=== PATIENT | male | born 1990 | race Caucasian/White ===

== ENCOUNTER 2024-08-17 21:32 | Inpatient (IN) | payer MEDICARE, SELFPAY ==
[2024-08-17 16:54] VITALS: BP 124/77
[2024-08-17 17:05] LABS: % Basophils 0.4 % (0-2); % Eosinophils 0.6 % (0-6); % Immature Granulocytes 0.3 % (0-0.5); % Lymphocytes 22.9 % (20.5-51.1); % Monocytes 7.2 % (1.7-9.3); % Neutrophils 68.6 % (42.2-75.2); Absolute Lymphocytes 1.6 10^3/uL (1.2-3.4); Absolute Monocytes 0.5 10^3/uL (0.1-0.6); Absolute Neutrophils 4.7 10^3/uL (1.4-6.5); Hematocrit 43.3 % (39.0-52.0); Mean Corp Hgb Conc. 34.6 g/dL (33.0-37.0); Mean Corpuscular Hgb 29.4 pg (27.0-31.0); Mean Corpuscular Volume 84.7 fL (80.0-94.0); Mean Platelet Volume 11.1 fL (7.4-10.4); Nucleated Red Blood Cells % 0 % (-); Platelet Count 185 10^3/uL (130-400); Red Blood Cell Count 5.11 10^6/uL (4.70-6.10); Red Cell Dist. Width 12.8 % (11.5-14.5); White Blood Cell Count 6.9 10^3/uL (4.8-10.8)
[2024-08-17 17:22] LABS: AST (SGOT) 22 U/L (17-59); Albumin 4.8 g/dl (3.5-5.0); Blood Urea Nitrogen 5 mg/dl (9-20); Calcium 9.8 mg/dl (8.4-10.2); Carbon Dioxide 21 mmol/L (22-30); Glucose 103 mg/dl (70-99); Total Bilirubin 1.1 mg/dl (0.2-1.3); Total Protein 7.8 g/dl (6.3-8.2); eGFR > 60.00
[2024-08-17 17:42] LABS: ALT (SGPT) 23 U/L (0-50); Alkaline Phosphatase 48 U/L (38-126); Chloride 106 mmol/L (98-107); Sodium 137 mmol/L (135-145)
[2024-08-17 18:04] LABS: Lipase 2057 U/L (23-300)
--- NOTE | 2024-08-17 18:48 | ED.GENMED ---
History of Present Illness
General
Chief Complaint: Abdominal Pain
Source: patient
Exam Limitations: none
Time Seen by Provider: 08/17/24 18:35
History of Present Illness
History of Present Illness:
34yoM with no significant past medical history presenting for evaluation of abdominal pain. Symptoms have been ongoing for about a week. He reports a dull pain particularly in his right upper quadrant. Pain is worse about 4 to 5 hours after
eating and at nighttime. Pain began worsening about 48 hours ago. No prior history of similar pains. He thought he may be constipated so started taking laxatives and now has diarrhea. He denies any fevers, nausea, vomiting. Of note, patient
started a high-fiber diet about a week prior to his symptoms starting. No previous abdominal surgeries. No alcohol use.
Phy Exam
General Physical Exam
General Presentation: well appearing and no apparent distress
General Skin: warm and dry
General Habitus: normal
General Mental: alert
ENT Exam
ENT Exam: normocephalic
Pulmonary Exam
Pulmonary Exam: no respiratory distress
Gastrointestinal Exam
Gastrointestinal Exam: soft, non distended and other (+Tenderness in epigastrium and RUQ. Abdomen soft, non-distended. No rebound or guarding.)
Neurological Exam
Neurological Exam: alert
G[place]le Coma Scale
Eye Opening: Spontaneous
Verbal Response: Oriented
Motor Response: Obeys Commands
GCS Total Score: 15
Skin Exam
Skin Exam: normal color and warm/dry
Psychiatric Exam
Psychiatric Exam: normal mood/affect
Course
Orders/Labs/Results
Orders:
Orders
08/17/24 Dinner
NPO
Allow oral meds: No
Allow clear liquids: No
NPO with Ice Chips: No
08/17/24 17:00
Cardiovascular Evaluation Urgent
Comment: ADD ON
Complete Blood Count/With Diff Urgent
Comprehensive Metabolic Panel Urgent
Lipase Urgent
08/17/24 18:47
0.9% Sodium Chloride 1000 ml [Nss] 1,000 ml IV BOLUS
US Abdomen Complete/Upper Urgent
Comment:
Reason For Exam: RUQ pain, elevated lipase
08/17/24 20:10
HYDROmorphone [Dilaudid] 0.5 mg IV NOW STA
08/17/24 20:30
Add On- LAB Urgent
Tests Added?: Lipid panel
08/17/24 20:54
Admit/Transfer Patient As Directed
Co-Sign Provider:
Level of Care: Inpatient admission
Assign to:: Medical/Surgical
Physician / Group: lela abrams
Diagnosis: acute pancreatitis
Reason for Hospitalization: acute pancreatitis
Expected length of stay greater than two midnights?: Yes
ELOS- Estimated Length of Stay in days: 3
I certify the patient meets the requirements for IP care: Yes
Code Status As Directed
Resuscitation Status: Full Code
08/17/24 20:58
PRN Pain Medication Management As Directed
May give lesser potent ordered pain med per pt: Yes
preference::
Protocol:: Medication orders for pain may be administered in a
manner that supports deferring to patient preference
when the pt is:
- Requesting an ordered lesser potent pain medication.
Least to most potent pain medications are defined
as: acetaminophen < NSAID < tramadol < opioids
(morphine, oxycodone, hydromorphone).
- Requesting a lesser dose of the same medication IF
ORDERED.
- Requesting a less intrusive route of administration
if both routes are prescribed by the provider (PO <
IV).
08/17/24 23:29
0.9% Sodium Chloride 1000 ml [Nss] 1,000 ml IV 150 mls/hr
HYDROmorphone [Dilaudid] 0.5 mg IV Q4HPRN PRN
HYDROmorphone [Dilaudid] 1 mg IV Q4HPRN PRN
08/17/24 23:29
Activity As Directed
Activity Level: As Tolerated
Sequential Compression Device [Pneumatic Compression Sleeves] As Directed
Type: Knee high
Vital Signs As Directed
Frequency: Per unit guidelines
DX Deep Vein Thrombosis Video Routine
08/18/24 06:00
Complete Blood Count/With Diff IN AM
Comprehensive Metabolic Panel IN AM
MRI Abdomen [MR Abdomen With Contrast] IN AM
Comment:
Reason For Exam: acute panreatitis
OK for patient to be off Cardiac Monitoring for MRI: Yes
Recent pill cam endoscopy?: No
Pacemaker/Defibrillator?: No
08/19/24 06:00
Complete Blood Count/With Diff IN AM
Comprehensive Metabolic Panel IN AM
Abnormal Lab Results
08/17/24
17:00
MPV 11.1 H fL
(7.4-10.4)
Carbon Dioxide 21 L mmol/L
(22-30)
BUN 5 L mg/dl
(9-20)
Creatinine 0.6 L mg/dL
(0.7-1.3)
Glucose 103 H mg/dl
(70-99)
Total Cholesterol 213 H mg/dl
(50-199)
Lipase 2057 H* U/L
(23-300)
08/17/24 17:00
08/17/24 17:00
Vital Signs
Initial and Last Documented VS:
Initial Vital Signs
Temp Pulse Resp BP Pulse Ox
97.9 F 103 20 124/77 98
08/17/24 16:54 08/17/24 16:54 08/17/24 16:54 08/17/24 16:54 08/17/24 16:54
Last Documented Vital Signs
Temp Pulse Resp BP Pulse Ox
98.6 F 82 14 111/54 97
08/17/24 23:46 08/17/24 23:46 08/17/24 23:46 08/17/24 23:46 08/17/24 23:46
MDM/Problems Addressed
Differential Diagnosis Includes:
34yoM here with RUQ pain x 1 week. Worsening x 48 hours. Worse with eating. Otherwise asymptomatic. VSS. He is non-toxic appearing. No signs of peritonitis on abdominal exam. Differential diagnosis includes but is not limited to: Biliary colic,
cholecystitis, pancreatitis, peptic ulcer disease, appendicitis, nonspecific abdominal pain
Initial ED plan: Abdominal labs obtained in triage. Lipase is greater than 2000. Remainder of labs including LFTs are normal. Will check upper abdominal ultrasound.
*Critical Care Note
Total Time (30-74mins, 75-104mins- exclusive of procedures): Not Applicable
Update Note
Update Note:
No obvious evidence of cholelithiasis on ultrasound. Unclear etiology of pancreatitis. He denies any alcohol use and is not on any prescription medications. Patient admitted for further evaluation and management.
ED Attending Note
-
Portions of this chart may have been created with voice recognition software.� Occasional wrong word or��sound alike� substitutions may have occurred due to the inherent limitations of voice recognition software.
Discharge Plan
Departure
Patient Disposition: Admit
Date of Disposition: 08/17/24
Time of Disposition: 20:12
Presentation/result/management discussed w/ accepting MD/DO: Hospitalist
Discharge Problem:
Acute pancreatitis
Interventions
Interventions:
*Risk Screen - Suicide Last Done: 08/17/24 16:54
*General Assessment Last Done: 08/17/24 16:54
*Neglect/Abuse Screening Last Done: 08/17/24 19:02
*ED- Fall Risk Assessment Last Done: 08/17/24 19:04
*ED COVID-19 Vaccine History Last Done: 08/17/24 19:04
XG-Vzjbao-Moizxguwox Assessment Last Done: 08/17/24 20:50
[2024-08-17 18:59] VITALS: BMI 23.2
[2024-08-17 19:00] VITALS: BP 96/58
--- NOTE | 2024-08-17 20:26 | HPS.HSE ---
Family Physician
-
Family Physician:
Chief Complaint
-
Right upper quadrant abdominal pain x 7 days on and off
History of Present Illness
34-year-old male complaining of right upper quadrant abdominal pain on and off for the past 7 days exacerbated after food or oral intake. He denies alcohol use states he has been sober for approximately 6 years. Denies any family history of
hyperlipidemia or gallstones. He denies headache, fever, chills, chest pain, palpitations, cough, shortness of breath, nausea, vomiting, diarrhea, urinary symptoms. He has past medical history of prior alcohol abuse, migraines, anxiety.
Medical History
Past Medical History
Past Medical History: Reports Other
Additional Past Medical History:
prior alcohol abuse-sober x 6 years
migraines
anxiety
Past Surgical History: Reports None
Social History
Tobacco: Non-smoker
Alcohol: Former (Sober x 6 years)
Drug: None
Personal: Other (Girlfriend)
Living: Other (Girlfriend)
Employment: Not Employed
Family History
Family History: Other (Paternal grandfather lung cancer, maternal grandmother breast cancer, father colon polyps, former alcohol abuse)
Allergies / Home Medications
Allergies reflects when Allergies were last updated in [facility].
Home Medications with original date entered in [facility]
Allergy/Medication List:
Allergies
Allergy/AdvReac Type Severity Reaction Status Date / Time
No Known Allergies Allergy Unverified 08/17/24 16:55
Home Medications
ibuprofen 200 mg tablet (Advil) 200 mg PO DAILYPRN PRN mild pain 08/17/24
polyethylene glycol 3350 17 gram oral powder packet (Miralax) 17 g PO DAILYPRN PRN constipation 08/17/24
simethicone 250 mg capsule (Gas-X) 250 mg PO BIDPRN PRN gas pains 08/17/24
Review of Systems
-
History Source: Patient
A 12 point ROS was completed and negative except as noted: Yes
Constitutional: Denies Fever or Chills
EENT: Denies Sore Throat or Runny Nose
Respiratory: Denies Cough or Trouble Breathing
Cardiac: Denies Chest Pain, Diaphoresis, Palpitations or Syncope
Abdomen/GI: Reports Abdominal Pain (Right upper quadrant); Denies Nausea, Vomiting, Diarrhea, Constipated, Bloody Stools or Black Stools
: Denies Dysuria, Frequency, Flank Pain, Incontinence, Difficulty Voiding, Urgency or Dark Urine
Musculoskeletal: Denies Joint Pain or Edema
Skin: Denies Itching or Rash
Neurological: Denies Dizzy, Headache or Weakness
Endocrine: Reports No Symptoms
Hematologic/Lymphatic: Reports No Symptoms
Psych: Reports Calm
Physical Exam
Vital Signs
Vital Signs
Temp Pulse Resp BP Pulse Ox
98.3 F 82 18 96/58 99
08/17/24 19:00 08/17/24 19:00 08/17/24 19:00 08/17/24 19:00 08/17/24 19:00
Physical Exam
General: Conversant; No Fever, Chills or Sweats
HEENT: NormoCephalic, Anicteric, Moist mucous membranes, PERRLA, [place] Conjunctivae and No Ptosis
Respiratory: Clear; No Wheezes, Rales or Rhonchi
Cardiac: S1/S2 and Regular Rhythm; No Murmur, Rub, Gallop or Peripheral Edema
Breast: Deferred by me
GI: Soft, Non Distended, Normal Bowel Sounds, Tender (Right upper quadrant) and No Hepatosplenomegaly
Rectal: Deferred by Provider
Genito-urinary: Deferred by me
Musculoskeletal: No Clubbing, No Cyanosis and No Edema
Skin: Warm and Dry; No Rash
Neuro: AO x 3, No Motor Deficits, Nonfocal/grossly intact, Cranial Nerves Intact and No Sensory Deficits; No Facial Droop, Tremors or Sedated
Psych: Calm
Laboratory Results
-
08/17/24 17:00
08/17/24 17:00
Laboratory Results
Total Bilirubin 1.1 mg/dl (0.2-1.3) 08/17/24 17:00
AST 22 U/L (17-59) 08/17/24 17:00
ALT 23 U/L (0-50) 08/17/24 17:00
Alkaline Phosphatase 48 U/L (38-126) 08/17/24 17:00
Lipase 2057 U/L (23-300) H* 08/17/24 17:00
Data Reviewed
-
Ultrasound: Report Reviewed by me
Lab Data: Labs Reviewed by me
Impression/Plan
-
Impression/plan:
Observation MedSurg
#Acute pancreatitis
- Lipase 2056
-IV NSS 150 cc an hour
- MRI abdomen with contrast in a.m.
- Consult GI
- IV Dilaudid as needed pain
- IV Zofran as needed nausea
- Follow CBC, CMP
Abdominal ultrasound: No findings to confirm cholelithiasis. Likely trace gallbladder sludge. No gallbladder wall thickening or biliary tract dilation pancreas, abdominal aorta and IVC significantly obscured most likely by
overlying bowel gas
#Migraine hx
- No current migraine
#History anxiety
- Not on current medication
#History of prior alcohol abuse�sober x 6 years
Alcoholic from age [age] daily 12 beers or hard liquor
DVT prophylaxis
SCDs
Full code
--- NOTE | 2024-08-17 20:37 | W.PN.UPDATE ---
Update Note
Progress Note Update
I have independently examined the patient and agree with H&P written on the same date. In addition:
34yo M with PMHx of alcoholism, sober for years now came with 2 weeks upper abd pain, found pancreatitis
IVF, NPO, MRI abd with contrast pancreatic protocol with family Hx of CA, GI consult, pain mgmt, check lipids
US with sludge in gall bladder -still can be a gall stone pancreatitis - defer decision on cholecystectomy to GI
We have spent at least 78min admitting the patient
[2024-08-17 21:21] LABS: HDL Cholesterol 42 mg/dl; LDL Cholesterol, Calculated 153 mg/dl; Total Cholesterol 213 mg/dl (50-199); Triglyceride 92 mg/dl (10-149); Very Low Density Lipoprotein 18 mg/dl (0-30)
[2024-08-17] MEDS: DILAUDID 0.5 MG IV (22:04)
[2024-08-17] MEDS: NSS 1000 IV (23:35)
[2024-08-17 23:46] VITALS: BP 111/54
[2024-08-18] MEDS: DILAUDID 0.5 MG IV ×5 (02:55→21:42)
[2024-08-18] MEDS: NSS 1000 IV ×2 (05:09→11:34)
[2024-08-18 06:02] LABS: % Basophils 0.4 % (0-2); % Eosinophils 0.8 % (0-6); % Immature Granulocytes 0.1 % (0-0.5); % Monocytes 10.5 % (1.7-9.3); % Neutrophils 61.2 % (42.2-75.2); Absolute Eosinophils 0.1 10^3/uL (0-0.7); Absolute Lymphocytes 1.9 10^3/uL (1.2-3.4); Absolute Monocytes 0.8 10^3/uL (0.1-0.6); Absolute Neutrophils 4.4 10^3/uL (1.4-6.5); Hematocrit 40.2 % (39.0-52.0); Hemoglobin 13.5 g/dL (13.0-18.0); Mean Corp Hgb Conc. 33.6 g/dL (33.0-37.0); Mean Corpuscular Hgb 28.8 pg (27.0-31.0); Mean Corpuscular Volume 85.7 fL (80.0-94.0); Mean Platelet Volume 11.6 fL (7.4-10.4); Nucleated Red Blood Cells % 0 % (-); Platelet Count 178 10^3/uL (130-400); Red Blood Cell Count 4.69 10^6/uL (4.70-6.10); Red Cell Dist. Width 13.1 % (11.5-14.5); White Blood Cell Count 7.1 10^3/uL (4.8-10.8)
[2024-08-18 06:29] LABS: ALT (SGPT) 20 U/L (0-50); AST (SGOT) 21 U/L (17-59); Albumin 4.4 g/dl (3.5-5.0); Alkaline Phosphatase 37 U/L (38-126); Blood Urea Nitrogen 4 mg/dl (9-20); Carbon Dioxide 20 mmol/L (22-30); Chloride 110 mmol/L (98-107); Estimated Creatinine Clearance > 125 ml/min; Glucose 83 mg/dl (70-99); Potassium 4.2 mmol/L (3.5-5.1); Sodium 142 mmol/L (135-145); Total Bilirubin 0.8 mg/dl (0.2-1.3); Total Protein 6.9 g/dl (6.3-8.2); eGFR > 60.00
[2024-08-18 07:49] VITALS: BP 107/63
[2024-08-18 08:22] VITALS: BP 102/58
--- NOTE | 2024-08-18 11:33 | CON.GI ---
Addendum entered and electronically signed by July Sanchez MD 08/18/24 18:07:
I saw and examined the patient.
The RADIO INTELLIGENCE OPERATOR's note was reviewed and I agree with the note.
Comment: This is a 34-year-old male with past medical history of alcohol abuse has been sober since 2019, anxiety, migraines who was in his usual state of health up until about a week ago when he started to have right upper quadrant pain especially
after eating. He thought it was constipation related so he took MiraLAX for a few days and had diarrhea yesterday but pain worsened yesterday so he presented to the emergency room and he was noted to have a lipase of 2056 and was admitted for
pancreatitis. Ultrasound did not reveal any gallstones or ductal dilatation there was trace gallbladder sludge but no signs of cholecystitis were noted. His LFTs are normal. He says he has been completely sober since 2019 he does use a medical
marijuana card- vapes and uses Advil as needed and Gas-X as needed. No fevers or chills. He has been afebrile and no leukocytosis on admission. Triglycerides were normal calcium was also normal.
Assessment and plan right upper quadrant pain for the past 1 week and elevated lipase on admission but normal LFTs. It is possible that he may have passed a small stone or sludge he does have gallbladder sludge noted on ultrasound possible mild
gallstone pancreatitis. MRI with MRCP is pending. Continue IV fluids and pain control. If MRI is negative and he continues to have right upper quadrant pain may need a HIDA scan to rule out possible cholecystitis although on ultrasound did not
have evidence of cholecystitis. He denies any use of alcohol he is been sober for the past 6 years and he is really not on any other medications except for occasional Advil as needed and MiraLAX as needed for constipation and Gas-X as needed. He
also uses medical marijuana vapes
Original Note:
Consultation
-
Date/Time Consultation Requested: 08/17/24 4950
Date/Time Consultation Performed: 08/18/24 1130
Requesting Provider: MELCHOR Gorman
Performing Provider: MELCHOR Edge, July Sanchez MD
Reason for Consultation: pancreatitis
Medical History
Chief Complaint / HPI
Chief Complaint: abdominal pain
History of Present Illness:
Pt is a 34yo with hx migraines, anxiety with feeling of panic attack prior to admission, prior ETOH abuse- sober for 6 years with onset of right upper quadrant pain for last week with post prandial pain about 5 hours after eating. On admission
noted with stable labs except lipases 2056. US completed on admission with no findings to confirm cholelithiasis. Likely trace gallbladder sludge. No gallbladder wall thickening or biliary tract dilatation. Negative sonographic Rodriguez's sign.
Pancreas, abdominal aorta and IVC significantly obscured, most likely by overlying bowel gas.
In review with patient admits to last ETOH 2018. He did go to detox and no prior hx pancreatitis or ETOH hepatitis or liver issues in past. He admits to Ibuprofen use only after onset of pain and Miralax with some constipation but denies any
chronic medication use. TG 92 on admission. Pt admits to change in diet prior to onset with increased fiber in diet and few lbs wt loss. Pt denies dysphagia, GERD, nausea, vomiting, diarrhea or rectal bleeding. No hx EGD or colonoscopy in past.
Past Medical History
Past Medical History: Psychiatric (anxiety ) and Other (migraines, prior ETOH abuse sober since 2019)
Social History
Tobacco: Vaping
Alcohol: Former
Drug: Marijuana
Personal: Other (girlfriend )
Living: With Family
Employment: Not Employed
Family History
Family History: Other (no family hx pancreatitis )
Allergies / Home Medications
Allergy/AdvReac Type Severity Reaction Status Date / Time
No Known Allergies Allergy Unverified 08/17/24 16:55
�Medication �Instructions �Recorded
ibuprofen 200 mg tablet (Advil) 200 mg PO DAILYPRN PRN mild pain 08/17/24
polyethylene glycol 3350 17 gram 17 g PO DAILYPRN PRN constipation 08/17/24
oral powder packet (Miralax)
simethicone 250 mg capsule (Gas-X) 250 mg PO BIDPRN PRN gas pains 08/17/24
Review of Systems
-
History Source: Patient
Constitutional: Reports Weight Loss
EENT: Reports No Symptoms
Respiratory: Reports No Symptoms
Cardiac: Reports No Symptoms
Abdomen/GI: Reports Abdominal Pain
: Reports No Symptoms
Musculoskeletal: Reports No Symptoms
Skin: Reports No Symptoms
Neurological: Reports Weakness
Endocrine: Reports No Symptoms
Hematologic/Lymphatic: Reports No Symptoms
Vital Signs
Temp Pulse Resp BP Pulse Ox
98.4 F 64 16 102/58 97
08/18/24 08:22 08/18/24 08:22 08/18/24 08:22 08/18/24 08:22 08/18/24 08:22
Physical Exam
Exam
General: Well Developed, Well Nourished and No Apparent Distress
HEENT: Normocephalic and Anicteric
Respiratory: Clear
Cardiac: Regular Rhythm
GI: Soft, Non Distended and Tender (RUQ mild tenderness)
Musculoskeletal: No Clubbing and No Cyanosis
Skin: Warm and Dry
Neuro: Awake, Alert and AO x 3
Psych: Calm
Results
WBC 7.1 10^3/uL (4.8-10.8) 08/18/24 05:07
Hgb 13.5 g/dL (13.0-18.0) 08/18/24 05:07
Hct 40.2 % (39.0-52.0) 08/18/24 05:07
MCV 85.7 fL (80.0-94.0) 08/18/24 05:07
Plt Count 178 10^3/uL (130-400) 08/18/24 05:07
Absolute Neuts (auto) 4.4 10^3/uL (1.4-6.5) 08/18/24 05:07
Sodium 142 mmol/L (135-145) 08/18/24 05:07
Potassium 4.2 mmol/L (3.5-5.1) 08/18/24 05:07
Chloride 110 mmol/L (98-107) H 08/18/24 05:07
Carbon Dioxide 20 mmol/L (22-30) L 08/18/24 05:07
BUN 4 mg/dl (9-20) L 08/18/24 05:07
Creatinine 0.6 mg/dL (0.7-1.3) L 08/18/24 05:07
Calcium 9.0 mg/dl (8.4-10.2) 08/18/24 05:07
Total Bilirubin 0.8 mg/dl (0.2-1.3) 08/18/24 05:07
AST 21 U/L (17-59) 08/18/24 05:07
ALT 20 U/L (0-50) 08/18/24 05:07
Alkaline Phosphatase 37 U/L (38-126) L 08/18/24 05:07
Lipase 2057 U/L (23-300) H* 08/17/24 17:00
Diagnostic Image Results:
08/17/24 US Abdomen Complete/Upper
No findings to confirm cholelithiasis. Likely trace gallbladder sludge. No gallbladder wall thickening or biliary tract dilatation. Negative sonographic Rodriguez's sign.
Pancreas, abdominal aorta and IVC significantly obscured, most likely by overlying bowel gas.
Prior GI Procedures:
EGD: none
Colonoscopy: none
Assessment / Plan
-
Pt is a 34yo with hx migraines, anxiety with feeling of panic attack prior to admission, prior ETOH abuse- sober for 6 years with onset of right upper quadrant pain for last week with post prandial pain about 5 hours after eating. On admission
noted with stable labs except lipases 2057. US completed on admission with no findings to confirm cholelithiasis. Likely trace gallbladder sludge. No gallbladder wall thickening or biliary tract dilatation. Negative sonographic Rodriguez's sign.
Pancreas, abdominal aorta and IVC significantly obscured, most likely by overlying bowel gas. No prior hx pancreatitis or ETOH hepatitis or liver issues in past. He admits to Ibuprofen use only after onset of pain and Miralax with some
constipation but denies any chronic medication use. TG 92 on admission. Pt admits to change in diet prior to onset with increased fiber in diet and few lbs wt loss.
-post prandial abdominal pain
-elevated lipase
-gallbladder sludge
-constipation prior to admission
other med problems:
-migraines
-anxiety
PLAN:
etiology so symptoms with concern for pancreatitis- gallstone vs other -- denies ETOH use, TG and calciums stable ) vs SB etiology with post prandial pain vs other
agree with MRI abdomen as pancreas not visualized on US
cont IVF will change to LR at 150ml/hr
ETOH abstinence, NSAID avoidance
NPO
pain control
will follow
-
-
Thank you for consultation and allowing me to participate in the patient's care. Please call the ecological economist GI physician during the after hours with any questions or concerns.
--- NOTE | 2024-08-18 13:16 | W.PN.HOSP.TC ---
Today's Communication/Plan
-
see outlined plan below
Assessment / Plan
Assessment / Plan
Assessment:
Acute pancreatitis
post prandial abdominal pain
- US: pancreas not well visualized. trace gallbladder sludge
- MRI/MRCP pending
- Lipase 2056; trend
- continue LR 150 cc/hour
- pain control, anti-emetics
- GI consulted
Migraine hx
- No current migraine
History anxiety
- Not on current medication
History of prior alcohol abuse�sober x 6 years
- Alcoholic from age [age] daily 12 beers or hard liquor
DVT prophylaxis: SCDs
Code: Full
Anticipated Discharge: 24 - 48 hours
Subjective/Interval History
-
Date of Service: August 18, 2024
mild pain, nausea, no vomit
awaiting MRI
Objective Data
-
Labs:
Laboratory Results
08/18/24
05:07
WBC 7.1
Hgb 13.5
Hct 40.2
Plt Count 178
Sodium 142
Potassium 4.2
Chloride 110 H
Carbon Dioxide 20 L
BUN 4 L
Creatinine 0.6 L
Glucose 83
Calcium 9.0
Total Bilirubin 0.8
AST 21
ALT 20
Alkaline Phosphatase 37 L
Vital Signs:
Vital Signs
Temp Pulse Resp BP Pulse Ox
98.4 F 64 16 102/58 97
08/18/24 08:22 08/18/24 08:22 08/18/24 08:22 08/18/24 08:22 08/18/24 08:22
Physical Exam
-
General: No Apparent Distress
HEENT: Normocephalic and Atraumatic
Respiratory: Negative Wheezes
Cardiac: Regular Rhythm and S1/S2
GI: Soft and Tender (RUQ)
Neuro: AO x 3
Psych: Calm
Data Reviewed
-
Total Time Spent with Patient (in minutes): 45
Labs: Labs Reviewed by me
[2024-08-18 13:54] VITALS: BP 108/64; BMI 23.7
[2024-08-18] MEDS: LR 1000 IV ×2 (14:49→21:39)
[2024-08-18 23:36] VITALS: BP 111/63
[2024-08-19] MEDS: DILAUDID 0.5 MG IV (02:39)
[2024-08-19] MEDS: LR 1000 IV ×2 (03:59→10:54)
[2024-08-19 05:53] LABS: % Basophils 0.5 % (0-2); % Immature Granulocytes 0.4 % (0-0.5); % Lymphocytes 26.4 % (20.5-51.1); % Monocytes 12.8 % (1.7-9.3); % Neutrophils 57.9 % (42.2-75.2); Absolute Eosinophils 0.1 10^3/uL (0-0.7); Absolute Lymphocytes 1.5 10^3/uL (1.2-3.4); Absolute Monocytes 0.7 10^3/uL (0.1-0.6); Absolute Neutrophils 3.2 10^3/uL (1.4-6.5); Hematocrit 37.9 % (39.0-52.0); Hemoglobin 12.8 g/dL (13.0-18.0); Mean Corp Hgb Conc. 33.8 g/dL (33.0-37.0); Mean Corpuscular Hgb 29.2 pg (27.0-31.0); Mean Corpuscular Volume 86.3 fL (80.0-94.0); Mean Platelet Volume 11.3 fL (7.4-10.4); Nucleated Red Blood Cells % 0 % (-); Platelet Count 151 10^3/uL (130-400); Red Blood Cell Count 4.39 10^6/uL (4.70-6.10); Red Cell Dist. Width 13.1 % (11.5-14.5); White Blood Cell Count 5.6 10^3/uL (4.8-10.8)
[2024-08-19 06:18] LABS: ALT (SGPT) 18 U/L (0-50); AST (SGOT) 19 U/L (17-59); Albumin 4.2 g/dl (3.5-5.0); Alkaline Phosphatase 35 U/L (38-126); Blood Urea Nitrogen 6 mg/dl (9-20); Carbon Dioxide 22 mmol/L (22-30); Chloride 109 mmol/L (98-107); Estimated Creatinine Clearance > 125 ml/min; Glucose 68 mg/dl (70-99); Lipase 587 U/L (23-300); Potassium 4.5 mmol/L (3.5-5.1); Sodium 140 mmol/L (135-145); Total Bilirubin 0.9 mg/dl (0.2-1.3); Total Protein 6.6 g/dl (6.3-8.2); eGFR > 60.00
[2024-08-19 07:35] VITALS: BP 116/62
--- NOTE | 2024-08-19 08:40 | W.PN.HOSP.TC ---
Today's Communication/Plan
-
Discharge home if tolerates diet
Assessment / Plan
Assessment / Plan
Impression:
34 y/o M with acute pancreatitis, MRCP done which came back normal.
GI recommending to advance to low-fat diet.
Alcohol cessation.
Avoid NSAIDs.
Stable for discharge if tolerates diet
Assessment/Plan:
Acute pancreatitis
post prandial abdominal pain
- US: pancreas not well visualized. trace gallbladder sludge
- MRI/MRCP pending
- Lipase 2056; trend
- continue LR 150 cc/hour
- pain control, anti-emetics
- GI consulted
08/19
MRCP done which came back normal.
GI recommending to advance to low-fat diet.
Alcohol cessation.
Avoid NSAIDs.
Stable for discharge if tolerates diet
Migraine hx
- No current migraine
History anxiety
- Not on current medication
History of prior alcohol abuse�sober x 6 years
- Alcoholic from age [age] daily 12 beers or hard liquor
DVT prophylaxis: SCDs
Code: Full.
Total time spent on today's encounter was 55 minutes which included time spent in counseling the patient/family regarding diagnosis and treatment plan as listed above, goals of care, and symptom management. Case was discussed with nursing staff,
specialists, and care coordinators/case management. All labs and imaging personally reviewed by me. Remainder the time spent in detailed review of previous records, lab data, imaging, and other medical provider documentation.
Anticipated Discharge: Today
Subjective/Interval History
-
Date of Service: August 19, 2024
Patient seen and examined at bedside, denies any chest pain or shortness of breath, no abdominal pain, no nausea, no vomiting, no diarrhea or constipation.
MRCP came back normal, discharged home if tolerates diet.
Objective Data
-
Labs:
Laboratory Results
08/19/24
05:26
WBC 5.6
Hgb 12.8 L
Hct 37.9 L
Plt Count 151
Sodium 140
Potassium 4.5
Chloride 109 H
Carbon Dioxide 22
BUN 6 L
Creatinine 0.6 L
Glucose 68 L
Calcium 9.0
Total Bilirubin 0.9
AST 19
ALT 18
Alkaline Phosphatase 35 L
Vital Signs:
Vital Signs
Temp Pulse Resp BP Pulse Ox
98.3 F 71 16 116/62 99
08/19/24 07:35 08/19/24 07:35 08/19/24 07:35 08/19/24 07:35 08/19/24 07:35
I&O
08/18/24 08/19/24 08/20/24
06:59 06:59 06:59
Intake Total 650 / 650
Output Total 1450 / 1450
Balance -800 / -800
Physical Exam
-
General: Well Developed, Well Nourished, No Apparent Distress and Comfortable
HEENT: Normocephalic, Atraumatic, Moist Mucous Membranes, No Ptosis, PERRLA and Nose Appears Normal
Respiratory: Clear to Auscultation and Non Labored Respirations
Cardiac: Regular Rhythm and S1/S2
Breast: Deferred by me
GI: Soft, Nontender, Nondistended and Normal Bowel Sounds
Genito-urinary: No Costovertebral Tender
Musculoskeletal: No Clubbing, No Cyanosis and No Edema
Skin: Warm
Neuro: Awake, Alert, Oriented, AO x 3 and No Motor Deficits
Psych: Calm
Data Reviewed
-
Diagnostic Radiology: Image personally visualized and interpreted and Report Reviewed by me
CT Scan: Image personally visualized and interpreted and Report Reviewed by me
Ultrasound: Image personally visualized and interpreted and Report Reviewed by me
MRI: Image personally visualized and interpreted and Report Reviewed by me
Medical Tests (Nuc Med, Echo etc): Image personally visualized and interpreted and Report Reviewed by me
Labs: Labs Reviewed by me
Old Records: Reviewed
[2024-08-19] MEDS: FLUSH (NSS) 1 FLUSH IV (11:03)
[2024-08-19] MEDS: NSS (PRESERVATIVE FREE) 0.25 ML IV ×2 (11:10→11:11)
[2024-08-19] MEDS: ATIVAN 0.5 MG IV (11:12)
--- NOTE | 2024-08-19 13:37 | W.PN.GI.CBS2 ---
Addendum entered and electronically signed by Zeus Hammonds MD 08/19/24 15:04:
I saw and examined the patient.
The CONTROL TOWER OPERATOR or PA's note was reviewed and I agree with the note.
Comment:
Pt w/o pain, tolerated lunch
abd: soft, nontender
impression
resolved pain with negative MRI
plan:
alcohol abstinence
lactose free diet
avoid nsaids
no further inpatient w/u by us will sign off
Original Note:
Today's Communication / Plan
-
etiology of symptoms unclear-- pt with atypical abdominal for pancreatitis as post prandial and no imaging finding of pancreatitis so doubt true pancreatitis. May be Small bowel enteritis vs other process that is resolving
advance to low fat diet
if tolerating consider discharge
if recurrent symptoms or admission consider CT with oral contrast vs MRE for better SB evaluation
cap IVF if tolerating diet
ETOH abstinence, NSAID avoidance
stable for discharge if tolerates diet
return for any recurrent symptoms
Assessment / Plan
-
Pt is a 34yo with hx migraines, anxiety with feeling of panic attack prior to admission, prior ETOH abuse- sober for 6 years with onset of right upper quadrant pain for last week with post prandial pain about 5 hours after eating. On admission
noted with stable labs except lipases 2056. US completed on admission with no findings to confirm cholelithiasis. Likely trace gallbladder sludge. No gallbladder wall thickening or biliary tract dilatation. Negative sonographic Rodriguez's sign.
Pancreas, abdominal aorta and IVC significantly obscured, most likely by overlying bowel gas. No prior hx pancreatitis or ETOH hepatitis or liver issues in past. He admits to Ibuprofen use only after onset of pain and Miralax with some
constipation but denies any chronic medication use. TG 92 on admission. Pt admits to change in diet prior to onset with increased fiber in diet and few lbs wt loss.
08/19/24 MRI abdomen
No significant abnormality identified. Specifically, no MR evidence to suggest acute pancreatitis secondary complications. No bile duct dilatation
-post prandial abdominal pain
-elevated lipase
-gallbladder sludge
-constipation prior to admission
other med problems:
-migraines
-anxiety
PLAN:
etiology of symptoms unclear-- pt with atypical abdominal for pancreatitis as post prandial and no imaging finding of pancreatitis so doubt true pancreatitis. May be Small bowel enteritis vs other process that is resolving
advance to low fat diet
if tolerating consider discharge
if recurrent symptoms or admission consider CT with oral contrast vs MRE for better SB evaluation
cap IVF if tolerating diet
ETOH abstinence, NSAID avoidance
stable for discharge if tolerates diet
return for any recurrent symptoms
Subjective
Subjective
Date of Service: August 19, 2024
abdominal pain improving, NPO
Objective
Data Reviewed
Laboratory Data:
Laboratory Results
08/19/24 05:26
08/19/24 05:26
Laboratory Results
Total Bilirubin 0.9 mg/dl (0.2-1.3) 08/19/24 05:26
AST 19 U/L (17-59) 08/19/24 05:26
ALT 18 U/L (0-50) 08/19/24 05:26
Alkaline Phosphatase 35 U/L (38-126) L 08/19/24 05:26
Lipase 587 U/L (23-300) H 08/19/24 05:26
Vital Signs and I&O:
Vital Signs
Temp Pulse Resp BP Pulse Ox
98.3 F 71 16 116/62 99
08/19/24 07:35 08/19/24 07:35 08/19/24 07:35 08/19/24 07:35 08/19/24 07:35
I&O
08/18/24 08/19/24 08/20/24
06:59 06:59 06:59
Intake Total 650 / 650
Output Total 1450 / 1450
Balance -800 / -800
Physical Exam
Physical Exam
HEENT: Anicteric and Moist mucous membranes
Cardiology: Normal Sinus Rhythm
Pulmonary: Clear
GI: Soft, Distended and Non Tender
Extremities: No Edema
Neuro: Non Focal
--- NOTE | 2024-08-19 14:35 | W.DCSUMMARY ---
Addendum entered and electronically signed by Thomas Tapia MD 08/20/24 14:24:
mild Metabolic acidosis
Original Note:
Discharge Summary
Discharge Data
Date of Admission: 08/17/24
Date of Discharge: 08/19/24
-
Pending Results: No
Hospital Course
Hospital course
34 y/o M with acute pancreatitis, MRCP done which came back normal.
GI recommending to advance to low-fat diet.
Alcohol cessation.
Avoid NSAIDs.
Stable for discharge if tolerates diet.
During hospitalization patient was treated from the following
post prandial abdominal pain
- US: pancreas not well visualized. trace gallbladder sludge
- MRI/MRCP pending
- Lipase 2056; trend
- continue LR 150 cc/hour
- pain control, anti-emetics
- GI consulted
08/19
MRCP done which came back normal.
GI recommending to advance to low-fat diet.
Alcohol cessation.
Avoid NSAIDs.
Stable for discharge if tolerates diet
Migraine hx
- No current migraine
History anxiety
- Not on current medication
History of prior alcohol abuse�sober x 6 years
- Alcoholic from age [age] daily 12 beers or hard liquor
DVT prophylaxis: SCDs
Code: Full.
Total time spent on today's encounter was 40 minutes which included time spent in counseling the patient/family regarding diagnosis and treatment plan as listed above, goals of care, and symptom management. Case was discussed with nursing staff,
specialists, and care coordinators/case management. All labs and imaging personally reviewed by me. Remainder the time spent in detailed review of previous records, lab data, imaging, and other medical provider documentation.
Anticipated Discharge: Today
Discharge Plan
-
Patient Disposition: Home (Routine Discharge)
Discharge Diagnosis/Procedures: Acute Pancreatitis
Diet: As tolerated and Low Fat
Activity: No restrictions
Referrals:
Primary care physician [Other]
NONE,* [Family Provider, Internal Medicine]
Anna Draper DO [Active, Gastroenterology] - in three to four weeks
Additional Discharge Medication Instructions: Avoid NSAIDs
Prescriptions:
Continued
polyethylene glycol 3350 [Miralax] 17 gram Powder In Packet
17 g PO DAILYPRN PRN (Reason: constipation)
Gas-X 250 mg Capsule
250 mg PO BIDPRN PRN (Reason: gas pains)
Discontinued
ibuprofen [Advil] 200 mg Tablet
200 mg PO DAILYPRN PRN (Reason: mild pain)
Discharge Orders:
Discharge Patient (As Directed); Ordered 08/19/24
Ordered By: Thomas Tapia
Discharge Date and Time
Print Language: ARMENIAN
--- NOTE | 2024-08-19 15:35 | CM ---
Alert awake oriented pt who lives with JIM Mendosa in a 2 story home with 0 steps to enter and 12 steps to bed bathroom. Pt drives and is independent in all ADLs.No DME.
No VN No SNF hx.Hx of out pt PT.
Pharmacy [facility] [address]
in [place] appt on 08/29/24.
PLAN Home no needs
[2024-08-19 15:41] VITALS: BP 109/61
--- NOTE | 2024-08-19 16:06 | PN.CDI ---
CDI
- -
CDI:
Physician Documentation Request
Admit Date: 08/17/24 21:32
Dear Doctor Willie,
Clinical Indicators:
Patient admitted with acute pancreatitis.
08/18, 08/19 IVF: LR @ 150 ml/hr
Serum bicarbonate trend:
08/17/24 08/18/24 08/19/24
17:00 05:07 05:26
Carbon Dioxide 21 L 20 L 22
Based on the above, could you clarify in the progress notes, the appropriate diagnosis, if significant, that supports the above abnormalities and additional evaluation, monitoring and/or treatment rendered:
Metabolic acidosis
Abnormal lab values, clinically insignificant
Other, please specify
Use of terms such as suspected, likely, concern for, or probable (associated with a specific diagnosis that is being evaluated, monitored, or treated as if it exists) are acceptable and can be coded in the inpatient setting, when documented at the
time of discharge.
Thank you,
YULISSA Cash RN
CDI Specialist
available via tiger text
Please use your independent medical judgment in providing your response.
== END 2024-08-19 15:59 | disposition home or self-care (01) | DRG 439 ==
LOC: 4 EAST ACU 21:32
PROVIDERS: Clinical Nurse Specialist Family Health; Emergency Medicine; ADMITTING PHYSICIAN Internal Medicine; ATTENDING PHYSICIAN General Practice; EMERGENCY PHYSICIAN Emergency Medicine; OTHER PHYSICIAN Internal Medicine Gastroenterology
DX: K85.90 Acute pancreatitis without necrosis or infection, unspecified (principal); E87.20 Acidosis, unspecified; F10.11 Alcohol abuse, in remission; G43.909 Migraine, unspecified, not intractable, without status migrainosus; K59.00 Constipation, unspecified; K82.8 Other specified diseases of gallbladder; R74.8 Abnormal levels of other serum enzymes; F41.0 Panic disorder [episodic paroxysmal anxiety]; Z80.3 Family history of malignant neoplasm of breast; Z80.1 Family history of malignant neoplasm of trachea, bronchus and lung; Z83.719 Family history of colon polyps, unspecified; Z81.1 Family history of alcohol abuse and dependence
CPT/HCPCS: 74183; 76700; 80053; 80061; 83690; 85025; A9575

== ENCOUNTER → 2024-10-10 13:10 | Outpatient (REF) | payer SELFPAY ==
[2024-10-10 14:40] LABS: Hematocrit 43.1 % (39.0-52.0); Hemoglobin 14.6 g/dL (13.0-18.0); Mean Corp Hgb Conc. 33.9 g/dL (33.0-37.0); Mean Corpuscular Volume 85.7 fL (80.0-94.0); Nucleated Red Blood Cells % 0 % (-); Platelet Count 201 10^3/uL (130-400); Red Cell Dist. Width 13.3 % (11.5-14.5)
[2024-10-10 15:17] LABS: ALT (SGPT) 29 U/L (0-50); AST (SGOT) 24 U/L (17-59); Albumin 5.0 g/dl (3.5-5.0); Alkaline Phosphatase 55 U/L (38-126); Blood Urea Nitrogen 5 mg/dl (9-20); Calcium 9.8 mg/dl (8.4-10.2); Carbon Dioxide 27 mmol/L (22-30); Chloride 102 mmol/L (98-107); Glucose 89 mg/dl (70-99); HDL Cholesterol 39 mg/dl; LDL Cholesterol, Calculated 98 mg/dl; Potassium 4.2 mmol/L (3.5-5.1); Sodium 138 mmol/L (135-145); Total Protein 7.7 g/dl (6.3-8.2); Very Low Density Lipoprotein 19 mg/dl (0-30); eGFR > 60.00
== END ==
LOC: REG 13:10
PROVIDERS: ATTENDING PHYSICIAN Nurse Practitioner Adult Health
DX: Z76.89 Persons encountering health services in other specified circumstances (principal); Z00.00 Encounter for general adult medical examination without abnormal findings; Z79.899 Other long term (current) drug therapy; Z13.29 Encounter for screening for other suspected endocrine disorder
CPT/HCPCS: 36415; 80053; 80061; 84443; 85025

== ENCOUNTER → 2024-10-12 07:42 | Outpatient (REF) | payer SELFPAY | LOC: RAD 07:42 | PROVIDERS: ATTENDING PHYSICIAN Internal Medicine Gastroenterology; FAMILY PHYSICIAN Nurse Practitioner Adult Health | DX: R10.11 Right upper quadrant pain (principal) | CPT/HCPCS: 78227; A9537; J2805 ==

== ENCOUNTER 2024-10-21 06:31 | Day surgery (SDC) | payer SELFPAY | END 2024-10-21 10:55 | disposition home or self-care (01) | LOC: GI 06:31 | PROVIDERS: ATTENDING PHYSICIAN Internal Medicine Gastroenterology | DX: R10.13 Epigastric pain (principal); R10.11 Right upper quadrant pain; K44.9 Diaphragmatic hernia without obstruction or gangrene | CPT/HCPCS: 43239; 88305; 88342 ==